=== PATIENT | male | born 1975 | race Two or more races ===

== ENCOUNTER 2023-12-02 16:44 | Emergency (ER) | payer OTHER ==
[~2023-12-02] VITALS: Ht 175.3 cm; Wt 99.8 kg
== END 2023-12-02 18:25 | disposition home or self-care (01) ==
LOC: ER 16:45
DX: G43.809 Other migraine, not intractable, without status migrainosus (principal)

== ENCOUNTER 2024-06-03 16:21 | Emergency (ER) | payer OTHER ==
[~2024-06-03] VITALS: Ht 177.8 cm; Wt 95.3 kg
[2024-06-03] MEDS ORDERED: KETOROLAC TROMETHAMINE 30 MG VIAL IM STA (19:30)
[2024-06-03] MEDS ORDERED: ORPHENADRINE CITRATE 30 MG/ML AMPUL IM STA (19:31)
[2024-06-03] MEDS ORDERED: CEFTRIAXONE SODIUM 1,000 MG VIAL IM STA (19:31)
[2024-06-03] MEDS ORDERED: NORFLEX100MG PO (19:47)
[2024-06-03] MEDS ORDERED: NAPROXEN500 MG PO (19:47)
[2024-06-03] MEDS ORDERED: AMOXICILLIN500 M1 PO (19:47)
[2024-06-03] MEDS ORDERED: ORPHENADRINE CITRATE 30 MG/ML AMPUL ONE (19:53)
[2024-06-03] MEDS ORDERED: CEFTRIAXONE SODIUM 1,000 MG VIAL ONE (19:55)
[2024-06-03] MEDS ORDERED: KETOROLAC TROMETHAMINE 30 MG VIAL ONE (19:55)
[2024-06-03] MEDS ORDERED: LIDOCAINE HCL 1% 10ML VIAL ONE (19:55)
== END 2024-06-03 20:02 | disposition home or self-care (01) ==
LOC: ER 16:22
DX: M54.50 Low back pain, unspecified (principal); K08.89 Other specified disorders of teeth and supporting structures

== ENCOUNTER → 2024-06-14 | Emergency (ER) | payer OTHER ==
[~2024-06-14] VITALS: Ht 177.8 cm; Wt 96.6 kg
[~2024-06-14] MED LIST: AMOXICILLIN500 M1 PO; KETOROLAC TROMETHAMINE 60 MG VIAL IM ONE; NAPROXEN500 MG PO; NORFLEX100MG PO
[2024-06-14 10:25] LABS: HEMATOCRIT 44.6 % (39.0-48.0); HEMOGLOBIN 15.1 g/dL (13-16.00); MEAN CELL VOLUME 95.9 fL (80.0-100.00); MEAN CORPUSCULAR HEMOGLOBIN 32.4 pg (27.00-32.0); MEAN CORPUSCULAR HGB CONC 33.7 g/dl (32.0-36.0); PLATELET COUNT 326 K/uL (150-450); RED BLOOD COUNT 4.65 M/uL (4.00-6.00); RED CELL DISTRIBUTION WIDTH 13.1 % (11.5-14.5)
[2024-06-14 10:48] LABS: CALCIUM 9.1 mg/dL (8.5-10.1); CREATININE SERUM 0.96 mg/dL (0.70-1.30); GFR 82.58; POTASSIUM 3.94 mEq/L (3.5-5.1)
[2024-06-14 11:09] LABS: PH,URINE 5.5 (5.0-8.0); URINE APPEARANCE Clear; URINE BILIRRUBIN Negative (NEGATIVE); URINE BLOOD Trace; URINE COLOR Yellow; URINE GLUCOSE Negative (NEGATIVE); URINE KETONE Trace (NEGATIVE); URINE LEUKOCYTE Negative; URINE NITRATE Negative; URINE PROTEIN Negative (NEGATIVE); URINE UROBILINOGEN 0.2 E.U./dl
[2024-06-14 11:13] LABS: URINE BACTERIA 7.5 uL (0.0-1933); URINE EPITHELIAL CELLS 4.1 uL (0.0-38.8); URINE RBC 31.1 uL (0.0-20.8)
[2024-06-14 11:50] LABS: URINE CAST 0.15 uL (0.0-1.40)
[2024-06-14 11:54] LABS: URINE CRYSTALS MANY /HPF
== END | disposition left against medical advice (07) ==
LOC: ER 09:04
PROVIDERS: General Practice
DX: N50.819 Testicular pain, unspecified (principal)

== ENCOUNTER 2024-07-07 15:07 | Emergency (ER) | payer OTHER ==
[~2024-07-07] VITALS: Ht 177.8 cm; Wt 95.3 kg
[~2024-07-07 15:07] MED LIST changes: -KETOROLAC TROMETHAMINE 60 MG VIAL IM ONE
[2024-07-07] MEDS ORDERED: AMPICILLIN SODIU1 GM IM (15:28)
[2024-07-07] MEDS ORDERED: MOTRIN IB200 MG PO (15:28)
[2024-07-07] MEDS ORDERED: SUMATRIPTAN SUCCINATE 6 MG/0.5 ML VIAL SUBCUTANEO STA (15:58)
[2024-07-07] MEDS ORDERED: SUMATRIPTAN SUCCINATE 6 MG/0.5 ML VIAL SUBCUTANEO ONE (16:01)
[2024-07-07] MEDS ORDERED: ENALAPRILAT DIHYDRATE 2.5 MG/2 ML VIAL IV STA (16:44)
[2024-07-07] MEDS ORDERED: ENALAPRILAT DIHYDRATE 1.25 MG/ML VIAL IV ONE (16:45)
[2024-07-07] MEDS ORDERED: ENALAPRILAT DIHYDRATE 1.25 MG/ML VIAL IV STA (16:58)
[2024-07-07] MEDS ORDERED: CLINDAMYCIN PHOSPHATE 150 MG/ML (300mg) IM STA (18:17)
[2024-07-07] MEDS ORDERED: KETOROLAC TROMETHAMINE 30 MG VIAL IM STA (18:17)
[2024-07-07] MEDS ORDERED: KETOROLAC TROMETHAMINE 30 MG VIAL ONE (19:00)
[2024-07-07] MEDS ORDERED: CLINDAMYCIN PHOSPHATE 150 MG/ML (300mg) ONE (19:00)
== END 2024-07-07 19:12 | disposition home or self-care (01) ==
LOC: ER 15:08
DX: G43.809 Other migraine, not intractable, without status migrainosus (principal); K08.89 Other specified disorders of teeth and supporting structures

== ENCOUNTER 2024-08-20 23:00 | Emergency (ER) | payer OTHER ==
[~2024-08-20] VITALS: Ht 177.8 cm; Wt 96.6 kg
[~2024-08-20 23:00] MED LIST changes: +AMPICILLIN SODIU1 GM IM; +MOTRIN IB200 MG PO
[2024-08-20 23:06] VITALS: BP 149/86; O2SAT 99
[2024-08-21] MEDS ORDERED: ALBUTEROL SULFATE 3 ML/2.5 MG AMPUL.NEB IH STA (01:54)
[2024-08-21] MEDS ORDERED: BUDESONIDE 0.5 MG/2 ML AMPUL.NEB IH STA (01:54)
[2024-08-21] MEDS ORDERED: ACETAMINOPHEN 500 MG GEL..CAP PO ONE (02:00)
[2024-08-21] MEDS ORDERED: ACETAMINOPHEN 80 MG/SUPP.RECT SUPP.RECT RECTAL ONE (02:00)
[2024-08-21] MEDS ORDERED: FLONASE16 GM NASAL (02:00)
[2024-08-21] MEDS ORDERED: VENTOLIN HFA18 GM IH (02:00)
== END 2024-08-21 03:04 ==
LOC: ER 23:01
DX: J68.2 Upper respiratory inflammation due to chemicals, gases, fumes and vapors, not elsewhere classified (principal)

== ENCOUNTER 2024-08-28 11:10 | Emergency (ER) | payer OTHER ==
[~2024-08-28] VITALS: Ht 177.8 cm; Wt 95.3 kg
[~2024-08-28 11:10] MED LIST changes: +FLONASE16 GM NASAL; +VENTOLIN HFA18 GM IH
[2024-08-28] MEDS ORDERED: DIPHENHYDRAMINE HCL 50 MG/ML VIAL 1ML IM STA (13:14)
[2024-08-28] MEDS ORDERED: DEXAMETHASONE SODIUM PHOSPHATE 4 MG/ML VIAL IM STA (13:14)
[2024-08-28 14:14] LABS: HEMATOCRIT 41.6 % (39.0-48.0); HEMOGLOBIN 14.3 g/dL (13-16.00); MEAN CELL VOLUME 96.3 fL (80.0-100.00); MEAN CORPUSCULAR HGB CONC 34.3 g/dl (32.0-36.0); PLATELET COUNT 353 K/uL (150-450); RED BLOOD COUNT 4.32 M/uL (4.00-6.00); RED CELL DISTRIBUTION WIDTH 13.2 % (11.5-14.5)
[2024-08-28] MEDS ORDERED: IVERMECTIN3 MG PO (15:26)
[2024-08-28] MEDS ORDERED: MEDROLPACK PO (15:26)
[2024-08-28] MEDS ORDERED: PERMETHRIN60 GM TOP (15:26)
== END 2024-08-28 15:42 | disposition home or self-care (01) ==
LOC: ER 11:11
PROVIDERS: General Practice
DX: B86 Scabies (principal); L28.2 Other prurigo

== ENCOUNTER 2024-10-20 11:10 | Emergency (ER) | payer OTHER ==
[~2024-10-20] VITALS: Ht 177.8 cm; Wt 97.5 kg
[~2024-10-20 11:10] MED LIST changes: +IVERMECTIN3 MG PO; +MEDROLPACK PO; +PERMETHRIN60 GM TOP
[2024-10-20] MEDS ORDERED: TETANUS & DIPHTHERIA TOX,ADULT 0.5 ML VIAL IM STA (13:27)
[2024-10-20] MEDS ORDERED: 0.9 % SODIUM CHLORIDE 1,000 ML IV STA (13:28)
[2024-10-20] MEDS ORDERED: DEXTROSE 5% IV STA (13:30)
[2024-10-20] MEDS ORDERED: WATER IV STA (13:30)
[2024-10-20] MEDS ORDERED: MEPERIDINE HCL/PF 50 MG/ML VIAL IV STA (13:31)
[2024-10-20] MEDS ORDERED: PROMETHAZINE HCL 50 MG/ML AMPUL IV STA (13:32)
[2024-10-20 14:00] LABS: HEMATOCRIT 42.8 % (39.0-48.0); HEMOGLOBIN 14.7 g/dL (13-16.00); MEAN CELL VOLUME 94.9 fL (80.0-100.00); MEAN CORPUSCULAR HEMOGLOBIN 32.6 pg (27.00-32.0); MEAN CORPUSCULAR HGB CONC 34.4 g/dl (32.0-36.0); PLATELET COUNT 372 K/uL (150-450); RED BLOOD COUNT 4.51 M/uL (4.00-6.00)
[2024-10-20 14:31] LABS: CREATININE SERUM 0.95 mg/dL (0.70-1.30); GFR 83.58; POTASSIUM 4.28 mEq/L (3.5-5.1)
[2024-10-20] MEDS ORDERED: CEFTRIAXONE SODIUM 1,000 MG VIAL IV ONE (15:00)
[2024-10-20] MEDS ORDERED: BUTALB/ACETAMINOPHEN/CAFFEINE 1 TAB TABLET PO ONE (15:00)
[2024-10-20 17:04] LABS: PH,URINE 6.5 (5.0-8.0); URINE APPEARANCE Clear; URINE BILIRRUBIN Negative (NEGATIVE); URINE BLOOD Negative; URINE COLOR Yellow; URINE GLUCOSE Negative (NEGATIVE); URINE KETONE Negative (NEGATIVE); URINE LEUKOCYTE Trace; URINE NITRATE Negative; URINE PROTEIN Negative (NEGATIVE); URINE UROBILINOGEN 0.2 E.U./dl
[2024-10-20 17:15] LABS: URINE BACTERIA 0 uL (0.0-1933); URINE EPITHELIAL CELLS 0.4 uL (0.0-38.8); URINE WBC 1.5 uL (0.0-23.2)
[2024-10-20 17:23] LABS: COCAINE POSITIVE (NEGATIVE); METHADONE NEGATIVE (NEGATIVE); OPIATES NEGATIVE (NEGATIVE); THC ( Cannabinoids) NEGATIVE (NEGATIVE)
[2024-10-20] MEDS ORDERED: BUTALB-ACETAMI1 EACH PO (18:50)
[2024-10-20] MEDS ORDERED: BACTRIM DS TAB1 EACH PO (18:50)
[2024-10-20] MEDS ORDERED: PEPCID AC20 MG PO (18:50)
[2024-10-20] MEDS ORDERED: ANALPRAM HC 2.530 GM RECTAL (18:51)
== END 2024-10-20 18:57 | disposition home or self-care (01) ==
LOC: ER 11:12
PROVIDERS: Emergency Medicine; General Practice
DX: S01.552A Open bite of oral cavity, initial encounter (principal); W54.0XXA Bitten by dog, initial encounter; Y93.89 Activity, other specified; Y92.89 Other specified places as the place of occurrence of the external cause; Y99.8 Other external cause status; R51.9 Headache, unspecified; Z20.822 Contact with and (suspected) exposure to COVID-19
CPT/HCPCS: 36415; 70450; 72131; 90471; 90714; J1670